=== PATIENT | male | born 1985 | race Caucasian/White ===

== ENCOUNTER 2023-12-07 22:07 | Emergency (ER) | payer SELFPAY ==
[2023-12-07 22:57] LABS: #Basophils 0.09 10x3/uL (0.0-0.2); %Basophils 0.6 % (0.0-1.0); %Eosinophils 0.8 % (0.0-10.0); %Lymphocytes 20.4 % (21.0-51.0); %Monocytes 8.3 % (0.0-10.0); %Neutrophils 69.6 % (42.0-75.0); Hematocrit 41.9 % (42.0-52.0); Hemoglobin 14.1 g/dL (14.0-18.0); Mean Corpuscular HGB CONC 33.7 g/dL (32.0-36.0); Mean Corpuscular Hemoglobin 29.4 pg (27.0-31.0); Mean Corpuscular Volume 87.5 fL (78.0-98.0); Mean Platelet Volume 11.5 fL (7.4-10.4); Platelet Count 237 10x3/uL (130-400); Red Blood Cell (RBC) Count 4.79 mill/uL (4.70-6.10)
[2023-12-07] MEDS ORDERED: Acetaminophen 500 MG TAB ONE (23:31)
[2023-12-07 23:43] LABS: ALT (SGPT) 12 U/L (8-55); AST (SGOT) 9 U/L (5-34); Albumin 3.8 g/dL (3.5-5.0); Alkaline Phosphatase 62 U/L (40-110); Anion Gap 18 mmol/L (10-20); BUN (Urea Nitrogen) 10 mg/dL (8.9-20.6); Bilirubin, Total 0.4 mg/dL (0.2-1.2); Calc. Creatinine Clearance 0 mL/min (70-130); Calcium 9.5 mg/dL (7.8-10.44); Carbon Dioxide 19 mmol/L (22-29); Chloride 109 mmol/L (98-107); Estimated GFR 115; Globulin 3.3 g/dL (2.4-3.5); Glucose 129 mg/dL (70-105); Potassium 3.9 mmol/L (3.5-5.1); Protein, Total 7.1 g/dL (6.0-8.3); Sodium 142 mmol/L (136-145)
[2023-12-08] MEDS ORDERED: Ketorolac Tromethamine 30 MG (1 mL) VIAL ONE (00:21)
[2023-12-08] MEDS ORDERED: Morphine 4 MG/ML VIAL ONE (00:21)
[2023-12-08] MEDS ORDERED: Ondansetron PF 4 MG/2 ML Vial ONE (00:21)
[2023-12-08] MEDS ORDERED: Ampicillin/Sulbactam 3 GM VIAL ONE ×2 (00:22→00:43)
[2023-12-08] MEDS ORDERED: Sodium Chloride 0.9% 100 ML ONE (00:43)
[2023-12-08] MEDS ORDERED: Iopamidol-370 76% 500 ML MDV (1 ML CHARGE) ONE (16:04)
== END 2023-12-08 04:24 | disposition home or self-care (01) ==
LOC: ERS 22:07
DX: K04.7 Periapical abscess without sinus (principal)
CPT/HCPCS: 36415; 70487; 80053; 83605; 85025; 87040; 96365; 96375; J0295; J1885; J2270; J2405; J3490; Q9967